=== PATIENT | female | born 1965 | race Two or more races ===

== ENCOUNTER 2020-09-05 11:08 | Emergency (ER) | payer OTHER ==
[~2020-09-05] VITALS: Ht 162.6 cm; Wt 68.0 kg
--- NOTE | 2020-09-05 11:29 | NUR ---
ED Nurse Note: Patient walked in to ED from home c/o left ankle pain and lower back pain S/P slip and fall at work 09/03/19. Patient walked in with limping gait, AAO x4, VSS at this time.
[2020-09-05 11:30] VITALS: BP 102/73
[2020-09-05] MEDS ORDERED: Acetaminophen 500mg (ES) tab ORAL ONE (11:30)
--- NOTE | 2020-09-05 11:48 | NUR ---
ED Nurse Note: patient was taken to CT
--- NOTE | 2020-09-05 12:01 | Diagnostic Imaging Report ---
Indication: Neck pain, status post fall Technique: Spiral acquisitions obtained through the cervical spine. No IV contrast utilized. Multiplanar reconstructions were generated. Total dose length product 438 mGycm. CTDIvol(s) 20 mGy. Dose reduction achieved using automated exposure control. Comparison: none Findings: No prevertebral soft tissue swelling. There is very slight anterior offset of C4 on C5. The remaining bony alignment is normal. No acute fracture. No dislocation. The vertebral body heights are preserved. At C5-6, there is mild degenerative disc narrowing. No significant disc bulge or protrusion. There is mild left and moderate right neural foraminal stenosis. Uncinate and facet hypertrophy. At the remaining disc levels, no significant disc bulge or protrusion, spinal stenosis, neural foraminal stenosis, or disc space narrowing. The included lung apices are clear. Impression: No acute bony trauma Mild degenerative changes as described The CT scanner at [facility] is accredited by the [employer] and the scans are performed using protocols designed to limit radiation exposure to as low as reasonably achievable to attain images of sufficient resolution adequate for diagnostic evaluation.
[2020-09-05] MEDS ORDERED: TYLENOL EXTRA500 MG ORAL (12:25)
[2020-09-05 12:28] VITALS: BP 102/73
--- NOTE | 2020-09-05 12:28 | NUR ---
ED Nurse Note: Pt cleared by health care Provider for discharge. DC instructions/prescription was given and explained to pt and verbalized understanding of teachings. All medical deviecs such as ID band removed. Pt is AAO x4, ambulatory and left with all personal belongings.
--- NOTE | 2020-09-05 13:41 | Emergency Room Report ---
History of Present Illness General Chief Complaint: Multiple Trauma/Fall Source: Patient Present Illness HPI 54-year-old female presents with neck back and ankle pain status post trip and fall at work 2 days ago. Slipped backwards and fell onto her back. Denies hitting her head or LOC. Complaining of pain to her left ankle, upper back and neck. Pain is dull, 7 out of 10, nonradiating. Denies any other injuries. No other aggravating relieving factors. Denies any other associated symptoms Allergies: Coded Allergies: No Known Allergies (Unverified , 09/05/20) COVID-19 Screening Contact w/high risk pt: No Experienced COVID-19 symptoms?: No COVID-19 Testing performed [employer] OFFICER: No Patient History Past Medical History: none Past Surgical History: none Pertinent Family History: none Social History: Denies: smoking, alcohol use, drug use Now: No Immunizations: UTD Reviewed Nursing Documentation: PMH: Agreed; PSxH: Agreed Nursing Documentation-PMH Past Medical History: No Stated History Review of Systems All Other Systems: negative except mentioned in HPI Physical Exam Vital Signs Date Time Temp Pulse Resp B/P (MAP) Pulse Ox O2 Delivery O2 Flow Rate FiO2 09/05/20 11:15 99.0 86 19 102/73 (83) 98 Room Air Sp02 EP Interpretation: reviewed, normal General Appearance: no apparent distress, alert, GCS 15, non-toxic Head: normocephalic, atraumatic Eyes: bilateral eye normal inspection, bilateral eye PERRL ENT: hearing grossly normal, normal pharynx, no angioedema, normal voice Neck: full range of motion, supple/symm/no masses, tender midline Respiratory: chest non-tender, lungs clear, normal breath sounds, speaking full sentences Cardiovascular #1: regular rate, rhythm, no edema Cardiovascular #2: 2+ carotid (R), 2+ carotid (L), 2+ radial (R), 2+ radial (L), 2+ dorsalis pedis (R), 2+ dorsalis pedis (L) Gastrointestinal: normal bowel sounds, non tender, soft, non-distended, no guarding, no rebound Rectal: deferred Genitourinary: normal inspection, no CVA tenderness, vertebral tenderness Musculoskeletal: back normal, normal range of motion, gait/station normal, tender - Left ankle Neurologic: alert, motor strength/tone normal, oriented x3, sensory intact, responsive, speech normal Psychiatric: judgement/insight normal, memory normal, mood/affect normal, no suicidal/homicidal ideation Reflexes: 3+ bicep (R), 3+ bicep (L), 3+ tricep (R), 3+ tricep (L), 3+ knee (R), 3+ knee (L) Skin: no rash Lymphatic: no adenopathy Procedures Splinting Splinting : Consent: Verbal Pre-Made Type: SHO wrap Pre-Proc Neuro Vasc Exam: normal Post-Proc Neuro Vasc Exam: normal Patient Tolerated: Well Complications: None Medical Decision Making Diagnostic Impression: Primary Impression: Ankle sprain Qualified Codes: S93.402A - Sprain of unspecified ligament of left ankle, initial encounter Additional Impression: Multiple injuries due to trauma ER Course Hospital Course 54 yo F presents to ED c/o neck pain back pain and ankle pain s/p fall Differential diagnoses include: Fracture, dislocation, sprain, contusion Clinical course Patient placed on stretcher. After initial history and physical, I ordered pain medications and imaginag CT C spine no acute process Xrays prelim read shows no acute fracture/dislocation. placed in sho wrap, given crutches Safe for discharge with close outpatient follow-up Diagnosis - ankle sprain Stable and discharged to home with prescription for Tylenol. apply ice, keep elevated. weight bear as tolerated. Followup with PMD. Return to ED if symptoms recur or worsen Other X-Ray Diagnostic Results Other X-Ray Diagnostic Results #1: X-Ray ordered: T spine # of Views/Limited Vs Complete: 3 View Indication: Pain EP Interpretation: Yes Interpretation: no dislocation, no soft tissue swelling, no fractures Impression: No acute disease Electronically Signed by: Electronically signed by Marvel Burgos MD Other X-Ray Diagnostic Results #2: X-Ray ordered: L ankle # of Views/Limited Vs Complete: 3 View Indication: Pain EP Interpretation: Yes Interpretation: no dislocation, no soft tissue swelling, no fractures Impression: No acute disease Electronically Signed by: Electronically signed by Marvel Burgos MD CT/MRI/US Diagnostic Results CT/MRI/US Diagnostic Results : Imaging Test Ordered: CT C spine Impression Procedure: CT C Spine no Contrast Indication: Neck pain, status post fall Technique: Spiral acquisitions obtained through the cervical spine. No IV contrast utilized. Multiplanar reconstructions were generated. Total dose length product 438 mGycm. CTDIvol(s) 20 mGy. Dose reduction achieved using automated exposure control. Comparison: none Findings: No prevertebral soft tissue swelling. There is very slight anterior offset of C4 on C5. The remaining bony alignment is normal. No acute fracture. No dislocation. The vertebral body heights are preserved. At C5-6, there is mild degenerative disc narrowing. No significant disc bulge or protrusion. There is mild left and moderate right neural foraminal stenosis. Uncinate and facet hypertrophy. At the remaining disc levels, no significant disc bulge or protrusion, spinal stenosis, neural foraminal stenosis, or disc space narrowing. The included lung apices are clear. Impression: No acute bony trauma Mild degenerative changes as described The CT scanner at [facility] is accredited by the [employer] and the scans are performed using protocols designed to limit radiation exposure to as low as reasonably achievable to attain images of sufficient resolution adequate for diagnostic evaluation. Last Vital Signs Date Time Temp Pulse Resp B/P (MAP) Pulse Ox O2 Delivery O2 Flow Rate FiO2 09/05/20 11:30 99.0 87 19 102/73 98 Room Air Status: improved Disposition: HOME, SELF-CARE Condition: Stable Scripts Acetaminophen* (TYLENOL EXTRA STRENGTH*) 500 Mg Tablet 500 MG ORAL Q8H PRN for Prn Headache/Temp > 101, #30 TAB 0 Refills Prov: Marvel Burgos MD 09/05/20 Referrals: NOT CHOSEN IPA/,REFERRING (PCP) [facility] Open 24 hour /7 days a week by Appointment Only [address] [facility] [address] [facility] [address] Departure Forms: Return to Work Return to Work Date: Sep 07, 2020 Work Restrictions: Desk Work Only Patient Instructions: Ankle Sprain, [id number] Marvel Burgos MD Sep 05, 2020 13:41
--- NOTE | 2020-09-05 14:11 | Diagnostic Imaging Report ---
Indications: Pain, status post fall at work Technique: Two views of the thoracic spine Comparison: None Findings: Bony alignment is normal. Vertebral body heights are preserved. The disc spaces are preserved. The pedicles are intact. There are cholecystectomy clips Impression: Negative
--- NOTE | 2020-09-05 14:12 | Diagnostic Imaging Report ---
Indication: Pain, status post fall Technique: 3 views of the ankle Comparison: none Findings: No acute fracture. No dislocation. The joint spaces are preserved. There are mild degenerative proliferative changes Impression: Negative
== END 2020-09-05 12:28 | disposition home or self-care (01) ==
LOC: EMR 12:19
DX: S93.402A Sprain of unspecified ligament of left ankle, initial encounter (principal); M54.2 Cervicalgia; M54.9 Dorsalgia, unspecified; W01.0XXA Fall on same level from slipping, tripping and stumbling without subsequent striking against object, initial encounter; Y92.9 Unspecified place or not applicable; Y99.0 Civilian activity done for income or pay
CPT/HCPCS: 72070; 72125; 99284